=== PATIENT | female | born 1950 | race Caucasian/White ===

== ENCOUNTER 2019-10-09 23:10 | Emergency (ER) | payer MEDICARE, OTHER ==
--- NOTE | 2019-10-09 23:52 | ED Physician Documentation ---
PD HPI NECK PAIN - Stated complaint Stated Complaint: NECK SPASM/PX - Chief complaint Chief Complaint: Back Pain - History obtained from History obtained from: Patient - History of Present Illness Timing - onset: Today Timing - details: Abrupt onset (awoke with neck pain right lateral neck this morning and it has worsened through the day, with spasms.), Still present Location: Mid (no radiation of the pain to the arm.), Right (to the side, at SCM muscle area) Quality: Pain, Spasm Associated symptoms: No: Fever, Weakness, Numbness Worsened by: Movement, Palpation Contributing factors: No: Lifting, Twisting, Trauma Similar symptoms before: Has not had sx before Recently seen: Not recently seen Review of Systems Constitutional: denies: Fever, Chills Nose: denies: Rhinorrhea / runny nose, Congestion Throat: denies: Sore throat Respiratory: denies: Cough Neurologic: denies: Focal weakness, Numbness, Headache PD PAST MEDICAL HISTORY - Present Medications Home Medications: Ambulatory Orders Medication Instructions Recorded Confirmed Biochemal Hormones 10/10/19 Hydrocodone/Acetaminophen [[place] 1 each PO Q6H PRN #20 tablet 10/10/19 5-325 Tablet] Levothyroxine [Synthroid] 25 mcg PO QDAC 10/10/19 10/10/19 Naproxen 500 mg PO BID #20 tablet 10/10/19 Tizanidine HCl 4 mg PO TID PRN #25 capsule 10/10/19 - Allergies Allergies/Adverse Reactions: Allergies Allergy/AdvReac Type Severity Reaction Status Date / Time No Known Drug Allergies Allergy Verified 10/09/19 23:19 PD ED PE NORMAL - Vitals Vital signs reviewed: Yes - General General: Alert and oriented X 3, No acute distress (She does appear comfortable with guarded range of motion of the neck in particular for turning to the right or tipping to the right.), Well developed/nourished - HEENT HEENT: Atraumatic, Moist mucous membranes, Pharynx benign - Neck Neck: Supple, no meningeal sign (She is not tender around the posterior aspect. She has tenderness on the right posterior belly of the sternocleidomastoid. Pain with tipping of the head to the right or turning to the right. Tipping the left is without pain.), No bony TTP, No adenopathy - Cardiac Cardiac: RRR, No murmur - Respiratory Respiratory: Clear bilaterally - Derm Derm: Normal color, Warm and dry - Neuro Neuro: Alert and oriented X 3, No motor deficit, No sensory deficit, Normal speech Results - Vitals Vitals: Vital Signs - 24 hr 10/09/19 10/10/19 23:15 01:16 Temperature 36.6 C Heart Rate 71 75 Respiratory 18 18 Rate Blood Pressure 148/86 H 132/80 H O2 Saturation 97 98 Oxygen O2 Source Room air PD MEDICAL DECISION MAKING - ED course Complexity details: considered differential (Right lateral neck muscular pain without any red flags. We will treat with medication), d/w patient Departure - Departure Disposition: Home, Self Care Clinical Impression: Neck muscle spasm Condition: Stable Record reviewed to determine appropriate education?: Yes Instructions: ED Spasm Neck No Injury Prescriptions: Naproxen 500 mg PO BID #20 tablet Hydrocodone/Acetaminophen [[place] 5-325 Tablet] 1 each PO Q6H PRN #20 tablet PRN Reason: Pain Tizanidine HCl 4 mg PO TID PRN #25 capsule PRN Reason: Spasms Comments: Heat and gentle stretching for the neck. Physical treatments such as massage and chiropractic are good to try as well. Use a combination of anti-inflammatory muscle relaxant and pain medicine for this over the next several days. I would anticipate improvement over the next several days and resolution over 3 to 5 days. Recheck if not improving in that timeframe or if other symptoms develop. Discharge Date/Time: 10/10/19 01:27
[2019-10-10] MEDS ORDERED: KETOROLAC 30 MG/ML VIAL IM STA (00:40)
[2019-10-10] MEDS ORDERED: methocarbamoL 500 MG TABLET PO STA (00:40)
[2019-10-10] MEDS ORDERED: HYDROcod/ACETAM 5/325 MG TABLET PO STA (00:40)
[2019-10-10] MEDS ORDERED: HYDROcod/ACET 5/325 Prepack 4 PO STA (00:40)
[2019-10-10 01:17] VITALS: BP 132/80
== END 2019-10-10 01:27 | disposition home or self-care (01) ==
LOC: ED 23:10
DX: M62.838 Other muscle spasm (principal); M54.2 Cervicalgia
CPT/HCPCS: 96372; 99283; 99284; A9270